=== PATIENT | female | born 1960 | race African-American/Black ===

== ENCOUNTER 2017-03-13 03:14 | Emergency (ER) | payer OTHER ==
[~2017-03-13] VITALS: Ht 167.6 cm; Wt 95.2 kg
[~2017-03-13 03:14] MED LIST: BENADRYL ALLERG25 MG PO; EPIPEN0.3 MG/0.1 IM; EXFORGE 10-3201 TAB PO; FAMOTIDINE PO; PREDNISONE PO
== END 2017-03-13 04:43 | disposition home or self-care (01) ==
LOC: SED 03:14
DX: T78.40XA Allergy, unspecified, initial encounter (principal); R21 Rash and other nonspecific skin eruption; I10 Essential (primary) hypertension; F17.200 Nicotine dependence, unspecified, uncomplicated; Z79.899 Other long term (current) drug therapy
CPT/HCPCS: 96374; 96375; 99283; J1200; J2930

== ENCOUNTER → 2017-04-05 | Day surgery (SDC) | payer OTHER ==
--- NOTE | ~2017-04-05 | OR ---
Unit #: [id number] #: [id number] Patient: HERB HERNADEZ [id number] [address] [place], [place] [address] [id number] MR#: [id number] NAME: HERB HERNADEZ ROOM: Date of Procedure: 04/05/2017 Admission Date: 04/05/2017 Surgeon: Herber Salomon Jr., M.D. : 1960 Attending Physician: Herber Salomon Jr., M.D. Primary Care Physician: Roberth Mueller M.D. OPERATIVE REPORT INDICATIONS FOR PROCEDURE The patient is a 57-year-old black female, who presents desiring screening colonoscopy. She has had no previous colonoscopy and has had no change in bowel habits and no rectal bleeding. She has had her prep at home. She understands the procedure including the risks, including that of perforation and bleeding, and consents. PREOPERATIVE DIAGNOSIS Desired screening colonoscopy, rule out pathology. POSTOPERATIVE DIAGNOSES Diverticulosis of the left colon with a small polyp of the rectosigmoid at 15 cm and small polyp of the transverse colon. ANESTHESIA MAC anesthesia. PROCEDURE PERFORMED Flexible colonoscopy to the distal ileum with biopsies of 2 small polyps. DESCRIPTION OF PROCEDURE The patient was positioned in [place] position with left side down. After being given MAC anesthesia, digital rectal examination was performed, which revealed no palpable mass or tenderness. No blood or stool within the rectal ampulla. The Olympus colonoscope was advanced through the anal canal up the rectum and retroflexed down to the area of the anorectal region. There was no evidence of any fissures. No significant internal hemorrhoids. The scope was then straightened and advanced up in the rectosigmoid at approximately 12 to 15 cm, there was a small adenomatous polyp which was biopsied with 2 bites with the cold biopsy forceps without bleeding. The scope was then advanced into the sigmoid and descending colon areas, where there were multiple diverticula without evidence of diverticulitis. The scope was then advanced around the splenic flexure and the transverse colon over the area of the hepatic flexure, where there was an additional small 1 mm polyp which was biopsied, appeared benign and had no bleeding with biopsy. The scope was then advanced around the hepatic flexure and ascending colon down in the area of the cecum. The light from the tip of the scope could be seen transilluminating through right lower quadrant abdominal wall area. The scope was advanced up the distal ileum approximately 10 to 12 inches. There was no evidence of any ileitis or inflammatory bowel disease. The scope was slowly removed. There were no tumors except for the polyps described above. No other Unit #: [id number] #: [id number] Patient: CANSLER,HERB polyps, no cancer, no AVMs. No evidence of any colitis or acute diverticulitis. The caliber of the colon appeared normal throughout. The scope was removed. The patient tolerated the procedure well and discharged in satisfactory condition. Dictated by... Herber Salomon Jr., MTish. MONA/pilar TD: 04/05/2017 10:25 JOB #: [id number] OPERATIVE REPORT Page 1 of 1 X Herber Salomon MD X PROCEDURE OPERATIVE NOTE
== END | disposition home or self-care (01) ==
LOC: COPS 05:47
DX: Z12.11 Encounter for screening for malignant neoplasm of colon (principal); D12.3 Benign neoplasm of transverse colon; K62.1 Rectal polyp; K57.30 Diverticulosis of large intestine without perforation or abscess without bleeding; K64.9 Unspecified hemorrhoids; F17.210 Nicotine dependence, cigarettes, uncomplicated; Z79.899 Other long term (current) drug therapy; Z87.440 Personal history of urinary (tract) infections; Z98.51 Tubal ligation status; Z98.890 Other specified postprocedural states; I10 Essential (primary) hypertension
CPT/HCPCS: 88305; J2250